=== PATIENT | female | born 1935 | race African-American/Black ===

== ENCOUNTER 2016-05-26 10:57 | Inpatient (IN) | payer OTHER ==
[~2016-05-26] VITALS: Ht 165.1 cm; Wt 91.9 kg
--- NOTE | ~2016-05-26 | CATHLAB ---
[facility] [address] [place] [address] INVASIVE PROCEDURE REPORT Name: WILFRED LÓPEZ Room #: 201-P [facility] IN M.R.#: [id number] Admission: 05/26/16 Attend Phys: Christel Riggs Discharge: 05/29/16 Date of : 39 Date of Service: 05/28/16 1449 Report #: [id number] THIS REPORT FOR: //name// CC: Roshan Li DATE OF SERVICE: 05/28/2016 IVC cavagram and IVC filter placement. INDICATION: Pulmonary emboli. GI bleeding. Unable to be anticoagulated. Needs IVC filter to prevent further emboli. DESCRIPTION OF PROCEDURE: Procedure and risk of IVC filter placement including the risk of filter migration and were discussed with the patient and consent obtained. The patient's left groin was prepped and draped in normal sterile fashion because the right common femoral vein appeared smaller in size. Ultrasound was used to interrogate the left groin, which showed the left common femoral vein to be patent. Under ultrasound guidance, a micropuncture set was used to gain access into the left common femoral vein followed by 5-Mozambican sheath. Through this, a flush catheter was placed in the lower IVC and IVC cavagram was performed with 20 mL of dilute iodinated contrast because of the patient's elevated creatinine. Precise measurements of the IVC were taken and it was less than 28 mm. Renal veins were in expected locations. Following this, a [employer] [place] IVC filter was placed into the inferior vena cava below the level of renal veins in the standard fashion. No immediate complications. FINDINGS: IVC is patent and is of normal size with renal veins in normal location. Subsequent placement of IVC filter was satisfactory. IMPRESSION: Satisfactory placement of inferior vena cava filter as fully reviewed above. <ELECTRONICALLY SIGNED> By: Ashvin Judd MD 05/31/16 1324 1449 0016 Ashvin Judd MD /nt
--- NOTE | ~2016-05-26 | P ---
[facility] [place] [address] PROCEDURE REPORT Name: WILFRED LÓPEZ Room #: 201-P ADM IN M.R.#: [id number] Admission: 05/26/16 Attend Phys: Christel Ledesma Discharge: Date of : 39 Report #: [id number] THIS REPORT FOR: //name// CC: Roshan Li MD Patient of Dr. Davon Li, Dr. Roshan Dutton and Dr. Christel Ledesma. PROCEDURE: Diagnostic EGD. INDICATION FOR PROCEDURE: The patient has been anemic. She has heme positive stools, but she also had a recent episode of epistaxis, which may explain her heme positive stools and anemia. EGD is being performed, nonetheless to be certain that there is no upper GI lesion that might explain heme positive stools and blood loss. Informed consent for this procedure was obtained prior to the administration of any medication. The risks of the procedure which include bleeding, perforation, infection, complications of sedation and the possibility I could miss something have been explained to the patient and she has indicated her consent by signing. Propofol 50 mg and ketamine 50 mg was slowly titrated before and during this procedure for patient comfort by the anesthesia service. The XOS Digitaln upper videoscope was introduced through the upper esophageal sphincter and advanced under direct visualization to the descending duodenum. Findings are noted on withdrawal of the scope. First of all, there is no blood seen in the entire upper GI tract and no source of GI blood loss either. The duodenal mucosa appears normal throughout its entirety. Pylorus, normal mucosa. Antrum, mild erythema is seen. Body, mild erythema is noted in the body of the stomach. Cardia and fundus, normal mucosa. Retroflex view did not reveal any significant abnormalities. The scope was withdrawn to the esophagus. The Z line is appropriately located at the top of the gastric folds and appears normal. The esophageal mucosa appears normal throughout its entirety. The scope was withdrawn. The patient went to the recovery area in stable condition. She tolerated the procedure well. IMPRESSION AND PLAN: Diffuse patchy mild gastric erythema with some mild erosions, this could be a source of heme positive stool, I doubt that it would cause significant gastrointestinal blood loss, however. I will recommend that she have a stool check for Helicobacter pylori antigen. The extent of GI workup in this situation is uncertain. I think we would need to talk with the patient and her family about how aggressive she would like to be in following this. If she prefers to be aggressive, then a colonoscopy and possibly an M2 capsule [address] [address] PROCEDURE REPORT Name: WILFRED LÓPEZ Room #: 201-P ADM IN M.R.#: [id number] Admission: 05/26/16 Attend Phys: Christel Ledesma Discharge: Date of : 39 Report #: [id number] study of the small intestine might be helpful and alternative plan might be to check her stools again later for blood to see if they have reverted to negative. For right now, I would continue the proton pump inhibitors for the mild erosive gastritis. Thank you very much once again for allowing me to participate in her care, Dr. Ledesma. <ELECTRONICALLY SIGNED> By: Susanne Sy DO 05/28/16 1612 1125 1509 Susanne Sy DO /nt
--- NOTE | ~2016-05-26 | EKG ---
[address] [place] [address] ELECTROCARDIOGRAM REPORT Name: WILFRED LÓPEZ [id number] Admission: 05/26/16 Attend Phys: Discharge: Date of : 39 Report #: [id number] THIS REPORT FOR: //name// [facility] ED Test Date: 2016-05-26 Test Time: 10:57:51 Pat Name: WILFRED LÓPEZ Department: Room: Gender: Sample Wrapper: [facility] : 1935 Requested By: Rachna Thompson Order Number: [id number] MD: Miguel Ángel Rooney Measurements Intervals [place] Rate: 75 P: 41 [place]: 197 QRS: -30 QRSD: 157 T: 37 QT: 460 QTc: 514 Interpretive Statements Sinus rhythm Right bundle branch block Compared to ECG 04/22/2016 08:33:06 Atrial premature complex(es) no longer present Electronically Signed On 05-26-2016 12:52:22 ANIMAL BIOLOGIST by Miguel Ángel Rooney [email or web address] <ELECTRONICALLY SIGNED> By: Miguel Ángel Rooney MD, [facility] 05/26/16 1252 1057 56 Miguel Ángel Rooney MD, FACC /EPI
--- NOTE | ~2016-05-26 | HC ---
[facility] [place] [address] CONSULTATION Name: WILFRED LÓPEZ Room #: 201-P ADM IN M.R.#: [id number] Admission: 05/26/16 Attend Phys: Christel Ledesma Discharge: Date of : 39 Report #: [id number] THIS REPORT FOR: //name// CC: Roshan Li DATE OF SERVICE: 05/27/2016 DATE OF SERVICE: 05/27/2016. REASON FOR CONSULTATION: Chest pain. HISTORY OF PRESENT ILLNESS: This is a very pleasant female who had been seen previously for chest discomfort and due to the presence of pulmonary embolus, unable to obtain a perfusion scan. After discharge, she was lost to follow up and did not undergo noninvasive assessment. She now presents once again with GI bleeding and chest discomfort. She was transferred from [facility] with complaints of chest tightness associated dyspnea at rest. Upon questioning, she states she has been having problems for several days, but nothing was done. She is on Coumadin for her pulmonary embolus and was discontinued by the Emergency Room on 05/13/2016 when she had mild controllable nosebleed. She apparently has a history of black stools recently, but no dizziness, lightheadedness. No fever, chills, night sweats. No orthopnea or PND. PAST MEDICAL HISTORY: Significant for: 1. Hypertension. 2. Diabetes. 3. Chronic kidney disease. 4. Anxiety, depression syndrome. 5. Peripheral neuropathy secondary to above. Diabetes. 6. Chronic thrombocytopenia. 7. Gastroparesis. 8. Malaise. 9. Coronary artery disease, status post bypass and percutaneous revascularization. 10. History of congestive heart failure, although not well documented. 11. Gastroesophageal reflux disease. ALLERGIES: ATORVASTATIN AND LISINOPRIL. PAST SURGICAL HISTORY: 1. Significant for aortocoronary bypass grafting. 2. Coronary stents x 2. 3. Back surgery. 4. Hysterectomy. [facility] [address] [place] [address] CONSULTATION Name: WILFRED LÓPEZ Room #: [address] [place] [address] IN ..#: [id number] Admission: 05/26/16 Attend Phys: Christel Ledesma Discharge: Date of : 37 Report #: [id number] 5. Appendectomy. 6. Scheduled for cataract surgery next week. RADIOLOGIC: Chest x-ray failed to demonstrate any acute changes. EKG: Normal sinus rhythm, nonspecific ST-T wave changes. MEDICATIONS: Carvedilol 12.5 b.i.d., potassium chloride, trospium chloride, nitroglycerin sublingual, Xalatan, aspirin, vitamin D3, melatonin, Robitussin cough suppressant, lispro insulin Zoloft, Crestor, Lyrica, Zofran, DuoNeb, Lasix, Lantus. FAMILY HISTORY: Significant for diabetes, hypertension. SOCIAL HISTORY: The patient lives in custodial, does not smoke, consume alcohol. Does not follow particular exercise regimen or dietary restriction, although he is supposed to be on a diabetic restricted diet. REVIEW OF SYSTEMS: Except for symptoms previously mentioned and those commensurate with comorbid states the 10 point review of system is negative. PHYSICAL EXAMINATION: GENERAL: Well-developed female resting comfortably in no acute distress. HEENT: Normocephalic, atraumatic. Pupils are equal, round, reactive to light and accommodation. Extraocular muscles are intact. Sclerae and conjunctivae are anicteric. NECK: JVD is normal. Carotid upstrokes are bilaterally symmetrical. No bruits are heard. No thyromegaly. No lymphadenopathy. LUNGS: Clear to auscultation. No wheezes, rhonchi or crackles. No CVA tenderness. CARDIAC: Demonstrates a regular rhythm. Normal first and second heart sounds. No ventricular or atrial gallops, no rubs noted. No murmurs. No lifts or heaves, PMI normal. ABDOMEN: Soft, nontender, nondistended. Normal bowel sounds. EXTREMITIES: Without cyanosis, clubbing or edema. Distal pulses are intact. DTR symmetrical. NEUROLOGIC: Cranial nerves 2-12 are grossly normal and symmetrical. PSYCHIATRIC: Alert, oriented with normal affect. [address] [address] CONSULTATION Name: WILFRED LÓPEZ Room #: 201-P [facility] IN M.R.#: [id number] Admission: 05/26/16 Attend Phys: Christel Ledesma Discharge: Date of : 37 Report #: [id number] SKIN: Warm and dry. LABORATORY DATA: Demonstrates a potassium of 4.0. BUN and creatinine are 36 and 2.7 with an estimated GFR 21. Nonfasting glucose is 150. BNP is 244, but not strictly interpretable due to decreased GFR. IMPRESSION: 1. Chest pain with shortness of breath, coronary artery disease. It would be reasonable to proceed with ischemic assessment, but the problem is that she may be having more pulmonary emboli due to the fact that anticoagulation for initial pulmonary emboli was discontinued. This is a significant concern. At the present time, we will optimize the medical regimen. 2. Pulmonary embolus needs to be on anticoagulation because of her diagnosis, it is within 3 months of being diagnosed. Shayne has the lowest risk and that should be considered. 3. Anemia, multifactorial. Hemoglobin has dropped from 11.8 to 8.0 with . This needs to be evaluated more fully due to the fact that she does need anticoagulation or an inferior vena cava filter to minimize embolic events. 4. Diabetes mellitus, multifactorial, advanced as per primary care. <ELECTRONICALLY SIGNED> By: Godwin Randhawa MD 05/28/16 1607 1047 1218 Godwin Randhawa MD /nt
[~2016-05-26 10:57] MED LIST: ASPIR-LOW81 MG PO; CARVEDILOL12.5 MG PO; CEFUROXIME250 MG PO; COUMADIN 5 MG TA5 M1 PO; CRESTOR10 MG PO; DUONEB 2.5-0.5 M3 ML INH; GLUCAGON HCL1 MG SUBQ; HUMALOG100 UNIT/1 SUBQ; HUMALOG100 UNIT/2 SQ; ISOSORBIDE MONO60 M1 PO; KLOR-CON 1010 MEQ PO; LANTUS100 UNIT/M SUBQ; LASIX 40 MG TAB40 M2 PO; LYRICA 50 MG50 MG PO; MELATONIN3 MG PO; NITROGLYCERIN0.4 MG SUBLING; ONDANSETRON HCL4 M2 PO; REGLAN 10 MG TA10 MG PO; ROBITUSSIN-COU237 ML PO; SERTRALINE HCL50 MG PO; TROSPIUM CHLORI20 MG PO; TYLENOL325 MG PO; VITAMIN D32000 UNI1 PO; XALATAN2.5 ML OPHTHALMIC
[2016-05-26 10:58] VITALS: BP 159/85
[2016-05-26] MEDS ORDERED: ZOFRAN ODT4 MG DISSOLVE (11:32)
[2016-05-26] MEDS ORDERED: XALATAN2.5 M1 OPHTHALMIC (11:33)
[2016-05-26 11:44] LABS: ABSOLUTE NEUTROPHILS 6.9 thou/uL (1.4-8.2); BASOPHILS 1.5 % (0.0-2.0); EOSINOPHILS 1.4 % (0.0-3.0); HEMATOCRIT 24.4 % (37.0-47.0); LYMPHOCYTES 22.7 % (24.0-44.0); MCH 29.2 pg (26.0-34.0); MCHC 32.6 % (28.0-37.0); MCV 89.5 fL (80.0-100.0); MONOCYTES 8.7 % (1.0-8.0); PLATELET COUNT 239 thou/uL (150-400); POLYS 65.7 % (36.0-66.0); RBC 2.73 mil/uL (4.20-5.00); RDW 15.2 % (10.5-14.5); WBC 10.5 thou/uL (4.0-11.0)
[2016-05-26 11:46] LABS: MANUAL DIFF NO
[2016-05-26 11:59] LABS: ANION GAP 11 mmol/L (7-16); APTT 22.5 Seconds (24.5-32.8); BUN 36 mg/dL (7-18); CHLORIDE 104 mmol/L (98-107); CO2 25 mmol/L (21-32); CREATININE 2.7 mg/dL (0.6-1.3); GLUCOSE 150 mg/dL (70-99); INR 1.2; SODIUM 140 mmol/L (136-145)
[2016-05-26 12:04] LABS: ALKALINE PHOSPHATASE 93 U/L (46-116); MAGNESIUM 2.5 mg/dL (1.8-2.4); SGOT 25 U/L (15-37); SGPT 35 U/L (30-65); TOTAL BILIRUBIN 0.2 mg/dL (<0.1-1.0); TOTAL PROTEIN 8.3 g/dL (6.4-8.2)
[2016-05-26 12:53] LABS: NT-PRO BRAIN NAT PEPTIDE 2445 pg/mL (<300); TROPONIN-I < 0.04 ng/mL (<0.04-0.07)
[2016-05-26 14:30] VITALS: BP 207/96
[2016-05-26 16:52] VITALS: BP 146/78
[2016-05-26 19:35] VITALS: BP 132/74
[2016-05-27] VITALS (10 sets, daily range): BP systolic 144–194; BP diastolic 78–110
[2016-05-27 03:35] LABS: WBC 8.7 thou/uL (4.0-11.0)
[2016-05-27 03:39] LABS: HEMATOCRIT 21.9 % (37.0-47.0); MCH 29.6 pg (26.0-34.0); MCHC 33.1 % (28.0-37.0); MCV 89.4 fL (80.0-100.0); RBC 2.45 mil/uL (4.20-5.00); RDW 15.1 % (10.5-14.5)
[2016-05-27 03:43] LABS: HEMOGLOBIN 7.2 gm/dL (12.0-15.0)
[2016-05-27 03:46] LABS: INR 1.3; PROTIME 13.9 Seconds (9.3-11.4)
[2016-05-27 04:08] LABS: ANION GAP 10 mmol/L (7-16); BUN 29 mg/dL (7-18); CHLORIDE 111 mmol/L (98-107); CO2 24 mmol/L (21-32); CREATININE 2.4 mg/dL (0.6-1.3); GLUCOSE 129 mg/dL (70-99); POTASSIUM 4.1 mmol/L (3.5-5.1); SODIUM 145 mmol/L (136-145)
[2016-05-27 04:18] LABS: ALBUMIN 2.5 g/dL (3.4-5.0); PHOSPHORUS 2.9 mg/dL (2.5-4.9); TROPONIN-I < 0.04 ng/mL (<0.04-0.07)
[2016-05-27 08:08] LABS: URINE BILIRUBIN NEGATIVE (Negative); URINE BLOOD 2+ (Negative); URINE COLOR YELLOW; URINE GLUCOSE-RANDOM* NEGATIVE (Negative); URINE KETONES NEGATIVE (Negative); URINE NITRITE NEGATIVE (Negative); URINE PROTEIN (DIPSTICK) 1+ (Negative); URINE UROBILINOGEN 0.2 E.U./dl (0.2-1.0)
[2016-05-27 08:22] LABS: SQUAMOUS 0-3 Few /LPF (0-3)
[2016-05-27 08:23] LABS: BACTERIA 1-9 Few /HPF (None Seen); CASTS None Seen /LPF (None Seen); CRYSTALS None Seen /LPF (None Seen); URINE RBC 0-2 Rare /HPF (0-2); URINE WBC None Seen /HPF (0-5)
[2016-05-27 09:40] LABS: HEMATOCRIT 23.9 % (37.0-47.0); HEMOGLOBIN 7.8 gm/dL (12.0-15.0)
[2016-05-28 05:28] LABS: HEMATOCRIT 29.5 % (37.0-47.0); HEMOGLOBIN 9.5 gm/dL (12.0-15.0); MCH 27.9 pg (26.0-34.0); MCHC 32.2 % (28.0-37.0); MCV 86.6 fL (80.0-100.0); RBC 3.41 mil/uL (4.20-5.00); RDW 17.8 % (10.5-14.5); WBC 10.7 thou/uL (4.0-11.0)
[2016-05-28 05:43] VITALS: BP 163/85
[2016-05-28 05:44] LABS: ALBUMIN 2.5 g/dL (3.4-5.0); CALCIUM 9.1 mg/dL (8.5-10.1); CREATININE 2.5 mg/dL (0.6-1.3); PHOSPHORUS 3.1 mg/dL (2.5-4.9); POTASSIUM 3.9 mmol/L (3.5-5.1); TROPONIN-I 0.06 ng/mL (<0.04-0.07)
[2016-05-28 07:10] VITALS: BP 185/95
[2016-05-28 10:36] VITALS: BP 185/95
[2016-05-28 11:00] LABS: INR 1.5; PROTIME 15.4 Seconds (9.3-11.4)
[2016-05-28 16:45] VITALS: BP 152/88
[2016-05-28 19:14] VITALS: BP 127/77
[2016-05-29 03:09] VITALS: BP 127/73
[2016-05-29 07:20] VITALS: BP 155/89
[2016-05-29] MEDS ORDERED: PROTONIX40 M1 PO (10:27)
[2016-05-29 11:15] VITALS: BP 134/73
== END 2016-05-29 13:45 | DRG 356 ==
LOC: ER 10:57 → 2N 13:06 → EROBS 13:06 → 2N 14:10
PROVIDERS: Hospitalist; Nurse Practitioner Acute Care; Nurse Practitioner Family
PROC: 06H03DZ Insertion of Intraluminal Device into Inferior Vena Cava, Percutaneous Approach (ICD-10-PCS; 2016-05-26)
PROC: 30233N1 Transfusion of Nonautologous Red Blood Cells into Peripheral Vein, Percutaneous Approach (ICD-10-PCS; 2016-05-27)
PROC: 05HB33Z Insertion of Infusion Device into Right Basilic Vein, Percutaneous Approach (ICD-10-PCS; 2016-05-27)
PROC: 0DJ08ZZ Inspection of Upper Intestinal Tract, Via Natural or Artificial Opening Endoscopic (ICD-10-PCS; principal; 2016-05-28)
DX: K92.2 Gastrointestinal hemorrhage, unspecified (principal); I26.99 Other pulmonary embolism without acute cor pulmonale; N17.0 Acute kidney failure with tubular necrosis; E43 Unspecified severe protein-calorie malnutrition; D62 Acute posthemorrhagic anemia; I13.0 Hypertensive heart and chronic kidney disease with heart failure and stage 1 through stage 4 chronic kidney disease, or unspecified chronic kidney disease; I50.9 Heart failure, unspecified; E11.22 Type 2 diabetes mellitus with diabetic chronic kidney disease; J44.9 Chronic obstructive pulmonary disease, unspecified; K21.9 Gastro-esophageal reflux disease without esophagitis; N18.9 Chronic kidney disease, unspecified; F32.9 Major depressive disorder, single episode, unspecified; E11.40 Type 2 diabetes mellitus with diabetic neuropathy, unspecified; J45.909 Unspecified asthma, uncomplicated; E11.43 Type 2 diabetes mellitus with diabetic autonomic (poly)neuropathy; K31.84 Gastroparesis; E78.5 Hyperlipidemia, unspecified; F41.9 Anxiety disorder, unspecified; D69.6 Thrombocytopenia, unspecified; I25.10 Atherosclerotic heart disease of native coronary artery without angina pectoris; Z95.1 Presence of aortocoronary bypass graft; I25.2 Old myocardial infarction; Z90.710 Acquired absence of both cervix and uterus; Z90.49 Acquired absence of other specified parts of digestive tract; Z79.82 Long term (current) use of aspirin; Z86.711 Personal history of pulmonary embolism; Z79.899 Other long term (current) drug therapy; Z95.5 Presence of coronary angioplasty implant and graft; Z83.3 Family history of diabetes mellitus; Z82.49 Family history of ischemic heart disease and other diseases of the circulatory system; Z79.01 Long term (current) use of anticoagulants
CPT/HCPCS: 10081; 27000; 62110; 62900; 70005

== ENCOUNTER 2016-06-11 16:56 | Inpatient (IN) | payer OTHER ==
[~2016-06-11] VITALS: Ht 165.1 cm; Wt 93.8 kg
--- NOTE | ~2016-06-11 | 2DMMODE ---
[facility] [place] [address] 2 D/M-MODE ECHOCARDIOGRAM Name: WILFRED LÓPEZ Room #: 210-P [facility] IN .R.#: [id number] Admission: 06/11/16 Attend Phys: Andres Lockett Discharge: Date of : 39 Date of Service: 06/12/16 1015 Report #: [id number] THIS REPORT FOR: //name// Transthoracic Echocardiography Ordering physician: Jennifer العلي Referring physician: Davon Li Backer Up: Kailee Lopes RDCS Indications/History: Chest Pain. Dyspnea. Coronary artery disease. Congestive heart failure. Risk factors: Hypertension. Diabetes mellitus. Labs, prior tests, procedures, and surgery: Coronary artery bypass grafting. BP: 160 / HR: 69bpm Height: 65in Weight: 216.5lb 88 Study data: Comparison was made to the study of April 22, 2016. M-mode, complete 2D, complete spectral Doppler, and color Doppler. Location: Bedside. Terrazzo Supervisor. Image quality was adequate. 2D measurements Normal Normal LVID ED 38.3mm 36-57 IVS ED 14.2mm 6-11 LVID ES 25.6mm 23-40 LVPW ED 13.8mm 6-11 LA volume 20ml/m2 16-28 AoRoot diam 30.9mm 21-37 index ED LVOT diameter 21mm 18-23 Findings: Left ventricle: The cavity size was normal. Wall thickness was increased increased in a pattern of mild to moderate LVH. Systolic function was normal. Wall motion was normal. Right ventricle: The cavity size was normal. Systolic function was normal. Right atrium: The atrium was normal in size. [facility] [address] [place] [address] 2 D/M-MODE ECHOCARDIOGRAM Name: WILFRED LÓPEZ Room #: 210-P ADM IN Capri.#: [id number] Admission: 06/11/16 Attend Phys: Andres Lockett Discharge: Date of : 39 Date of Service: 06/12/16 1015 Report #: [id number] Left atrium: The atrium was normal in size. Volume index: 20ml/m2 (S). Aortic valve: Structurally normal valve. Moderately sclerotic leaflets. Doppler: There was no stenosis. Moderate regurgitation. Peak velocity: 143.9cm/s (S). Mitral valve: Structurally normal valve. Doppler: There was no evidence for stenosis. Mild to moderate regurgitation. Tricuspid valve: Structurally normal valve. Doppler: There was no evidence for stenosis. Moderate regurgitation. Regurgitant peak velocity: 383cm/s. Peak RV-RA gradient: 59mm Hg (S). Pulmonic valve: Structurally normal valve. Doppler: There was no evidence for stenosis. Mild regurgitation. Pericardium: There was no pericardial effusion. Aorta: Aortic root: The aortic root was normal in size. Pulmonary artery: Systolic pressure was estimated to be 64mm Hg. Diastolic function: Doppler parameters are consistent with abnormal left ventricular relaxation (grade 1 diastolic dysfunction). Systemic veins: Inferior vena cava: The vessel was normal in size; the respirophasic diameter changes were in the normal range (= 50%). Conclusions 1. Left ventricle: The cavity size was normal. Wall thickness was increased increased in a pattern of mild to moderate LVH. Systolic function was normal. Ejection fraction: 62.52% (Teichholz). 2. Right ventricle: The cavity size was normal. 3. Aortic valve: Structurally normal valve. Moderately sclerotic leaflets. There was no stenosis. 4. Mitral valve: Structurally normal valve. 5. Tricuspid valve: Moderate regurgitation. Peak RV-RA gradient: 59mm Hg (S). 6. Pericardium, extracardiac: There was no pericardial effusion. [facility] [address] [place] [address] 2 D/M-MODE ECHOCARDIOGRAM Name: RENEWILFRED Room #: 210[facility] IN M.R.#: [id number] Admission: 06/11/16 Attend Phys: Andres Lockett Discharge: Date of : 39 Date of Service: 06/12/16 1015 Report #: [id number] 7. Pulmonary arteries: Systolic pressure was estimated to be 64mm Hg. <ELECTRONICALLY SIGNED> By: Joseph Chin MD 06/12/161701 1015 01 Joseph Chin MD /liliana
--- NOTE | ~2016-06-11 | EKG ---
[address] [place] [employer] [address] ELECTROCARDIOGRAM REPORT Name: RENEWILFRED Room #: 210-P ADM IN M.R.#: [id number] Admission: 06/11/16 Attend Phys: Gabriel Ziegler MD Discharge: Date of : 39 Report #: [id number] THIS REPORT FOR: //name// [facility] ED Test Date: 2016-06-11 Test Time: 17:04:18 Pat Name: WILFRED LÓPEZ Department: Room: 210 Gender: F Checking Department Supervisor: NISHA : 1935 Requested By: Lilia Pickett Order Number: [id number] MD: Joseph Chin Measurements Intervals [place] Rate: 70 P: 38 [place]: 179 QRS: -31 QRSD: 160 T: 7 QT: 473 QTc: 511 Interpretive Statements Sinus rhythm Right bundle branch block Probable left ventricular hypertrophy Electronically Signed On 06-12-2016 8:04:17 PMP CERTIFIED PROJECT MANAGER by Joseph Chin [email or web address] <ELECTRONICALLY SIGNED> By: Joseph Chin MD 06/12/16 0804 170 03 Joseph Chin MD /MARYSE
--- NOTE | ~2016-06-11 | HC ---
[facility] [place] [address] CONSULTATION Name: WILFRED LÓPEZ Room #: Formerly named [facility] IN M.R.#: [id number] Admission: 06/11/16 Attend Phys: Gabriel Ziegler MD Discharge: 06/14/16 Date of : 39 Report #: [id number] THIS REPORT FOR: //name// CC: [facility] DATE OF SERVICE: 06/11/2016 REASON FOR CONSULTATION: Chest pain. HISTORY OF PRESENT ILLNESS: The patient is a 80-year-old with known CAD, peripheral vascular disease with two recent hospitalizations for chest pain, one was in April where she had intermediate VQ scan and was placed on warfarin therapy. She came back on 05/26 with recurrent chest pain and possible epistaxis versus GI bleed. At that time it sounds like an IVC filter was placed. She comes back again with complaints of chest pain. She reports that last few seconds to a few minutes, feels like a tightness, some shortness of breath with exertion. She is currently chest pain free, other complaints include diarrhea. PAST MEDICAL HISTORY: 1. Coronary artery disease, status post stents x 2. 2. CABG. 3. Aortofemoral bypass. 4. CHF. 5. Hypertension. 6. Diabetes. 7. Possible GI bleed versus epistaxis. 8. PE with an intermediate VQ scan in April, status post IVC filter for possible GI bleeding. 9. Chronic renal insufficiency. 10. Anxiety, depression. 11. Her echo on 04/22/2016 showed EF of 55% with no significant valvular abnormalities. PA pressures of 58 mmHg. SOCIAL HISTORY: She lives at [facility], does not smoke. FAMILY HISTORY: Significant for diabetes. ALLERGIES: INCLUDE LIPITOR, LISINOPRIL. HOME MEDICATIONS: Include Imdur 60, Coreg 12.5 b.i.d., potassium, nitro p.r.n., eye drops, nebulizers, aspirin, insulin, sertraline, Crestor 10, pregabalin, Zofran, Glucagon, iron and loperamide. REVIEW OF SYSTEMS: GENERAL: No fevers, chills. [address] [address] CONSULTATION Name: WILFRED LÓPEZ Room #: 210-P [facility] IN .R.#: [id number] Admission: 06/11/16 Attend Phys: Gabriel Ziegler MD Discharge: 06/14/16 Date of : 39 Report #: [id number] HEENT: No blurred vision. CARDIOVASCULAR: As above. PULMONARY: No productive cough. GASTROINTESTINAL: No nausea, but has been having some diarrhea. GENITOURINARY: No dysuria. MUSCULOSKELETAL: No myalgias, arthralgias. ENDOCRINE: No heat or cold intolerance. NEUROLOGIC: No focal weakness. PHYSICAL EXAMINATION: VITAL SIGNS: Temperature is 36.8, pulse 69, respiration 18, blood pressure 160/80, sats 100%. GENERAL: She is in no acute distress, lying flat in bed. HEENT: Oropharynx is clear. NECK: Supple, no thyromegaly or carotid bruits. HEART: Regular rate and rhythm with occasional ectopic beats. No murmurs. She does not have elevated jugular venous pressure. LUNGS: Clear to auscultation bilaterally. ABDOMEN: Soft, nontender, nondistended with no hepatosplenomegaly. EXTREMITIES: There is no clubbing, cyanosis, edema. Cranial nerves II-XII are intact. LABORATORY DATA: White count is 7.7, hemoglobin 9.3, platelets are 180, ____is 3.8, creatinine is 3.0. Troponin was initially 0.1, is now 0.08. In summary, her chest x-ray reviewed shows some mild pulmonary edema, shows sternal wires, and enlarged cardiac silhouette. Her EKG showed sinus rhythm with a right bundle branch block, which is old with no ischemic changes. Telemetry shows sinus rhythm with occasional premature ventricular contractions. ASSESSMENT AND PLAN: In summary, the patient is a 80-year-old female with known CAD status post IVC filter for recent pulmonary embolus, presenting with recurrent chest pain. Her troponin is mildly elevated with an EKG that shows no ischemic changes. At this time, we will continue her on her current medical regimen, we will order a nuclear stress test to be performed on Tuesday. Based on these results, we will decide to proceed with cardiac cath. However, given her renal function, if there is not a significant territory of ischemia, I would probably recommend medical management. <ELECTRONICALLY SIGNED> By: Joseph Chin MD 06/18/16 1225 0901 0928 Joseph Chin MD /nt
[~2016-06-11 16:56] MED LIST changes: +PROTONIX40 M1 PO; +XALATAN2.5 M1 OPHTHALMIC; +ZOFRAN ODT4 MG DISSOLVE
[2016-06-11 16:59] VITALS: BP 143/70
[2016-06-11] MEDS ORDERED: GLUCAGON EMERGEN1 MG IJ (17:13)
[2016-06-11] MEDS ORDERED: OCEAN45 ML NASAL (17:14)
[2016-06-11] MEDS ORDERED: LOPERAMIDE1 MG/7.5 M PO (17:18)
[2016-06-11] MEDS ORDERED: IRON325 PO (17:18)
[2016-06-11 17:39] LABS: HEMATOCRIT 31.8 % (37.0-47.0); HEMOGLOBIN 10.2 gm/dL (12.0-15.0); MCH 28.1 pg (26.0-34.0); MCHC 32.3 % (28.0-37.0); PLATELET COUNT 184 thou/uL (150-400); RBC 3.65 mil/uL (4.20-5.00); RDW 18.2 % (10.5-14.5)
[2016-06-11 17:44] LABS: MANUAL DIFF YES
[2016-06-11 17:49] LABS: CALCIUM 9.5 mg/dL (8.5-10.1); POTASSIUM 3.6 mmol/L (3.5-5.1)
[2016-06-11 18:04] LABS: TROPONIN-I 0.11 ng/mL (<0.04-0.07)
[2016-06-11 18:05] LABS: ABSOLUTE NEUTROPHILS 4.6 thou/uL (1.4-8.2); ANISOCYTOSIS 1+; TOTAL CELL COUNT 100
[2016-06-11 18:20] VITALS: BP 141/67
[2016-06-11 19:47] VITALS: BP 145/61
[2016-06-11 21:13] VITALS: BP 169/84
[2016-06-11 23:29] VITALS: BP 140/74
[2016-06-12 03:50] VITALS: BP 170/88
[2016-06-12 05:54] LABS: HEMATOCRIT 29.6 % (37.0-47.0); HEMOGLOBIN 9.3 gm/dL (12.0-15.0); MCH 27.8 pg (26.0-34.0); MCHC 31.5 % (28.0-37.0); MCV 88.1 fL (80.0-100.0); RBC 3.35 mil/uL (4.20-5.00); WBC 7.7 thou/uL (4.0-11.0)
[2016-06-12 07:10] VITALS: BP 160/88; BP 170/88
[2016-06-12 08:17] LABS: ALBUMIN 2.5 g/dL (3.4-5.0); ALKALINE PHOSPHATASE 63 U/L (46-116); ANION GAP 9 mmol/L (7-16); BUN 33 mg/dL (7-18); CALCIUM 9.1 mg/dL (8.5-10.1); CHLORIDE 108 mmol/L (98-107); CO2 26 mmol/L (21-32); GLUCOSE 138 mg/dL (70-99); POTASSIUM 3.8 mmol/L (3.5-5.1); SGOT 31 U/L (15-37); SGPT 24 U/L (30-65); SODIUM 143 mmol/L (136-145); TOTAL BILIRUBIN 0.2 mg/dL (<0.1-1.0); TOTAL PROTEIN 7.4 g/dL (6.4-8.2)
[2016-06-12 11:30] VITALS: BP 183/86
[2016-06-12 11:37] LABS: CHOLESTEROL 110 mg/dL (<200); HDL CHOLESTEROL 46 mg/dL (>40); LDL CHOLESTEROL 45 mg/dL (<100); TC:HDL 2.4 Ratio (Not establshd); TRIGLYCERIDE 95 mg/dL (<150); VLDL 19 mg/dL (<40)
[2016-06-12 15:15] VITALS: BP 141/78
[2016-06-12 20:05] VITALS: BP 157/77
[2016-06-13 03:47] VITALS: BP 166/85
[2016-06-13 04:01] LABS: CREATININE 2.7 mg/dL (0.6-1.3); MAGNESIUM 2.3 mg/dL (1.8-2.4); POTASSIUM 3.3 mmol/L (3.5-5.1)
[2016-06-13 07:30] VITALS: BP 189/73
[2016-06-13 11:15] VITALS: BP 166/73
[2016-06-13 15:30] VITALS: BP 160/74
[2016-06-13 20:01] VITALS: BP 166/79
[2016-06-13 23:15] VITALS: BP 135/72
[2016-06-14 04:10] LABS: CALCIUM 8.9 mg/dL (8.5-10.1); CREATININE 2.2 mg/dL (0.6-1.3); POTASSIUM 3.5 mmol/L (3.5-5.1)
[2016-06-14 04:28] VITALS: BP 163/87
[2016-06-14 07:40] VITALS: BP 187/85
[2016-06-14 10:00] VITALS: BP 147/78
[2016-06-14 11:15] VITALS: BP 143/75
[2016-06-14 12:09] LABS: ABG SAMPLE TYPE ARTERIAL; BE(vivo) 4.6 mmol/L (-2 to +3); HCO3 28.9 mmol/L (22.0-26.0); LACTATE 1.07 mmol/L (0.5-2.0); O2(CT) 15.4 mL/dL (15.0-23.0); O2Hb 93.2 % (92.0-98.0); PCO2 41.8 mmHg (35.0-45.0); PO2 67.1 mmHg (80.0-100.0); pH 7.458 (7.360-7.450); sO2 94.2 % (92.0-98.0); tCO2 30.2 mmol/L (24.0-30.0)
[2016-06-14 12:11] LABS: ABG COMMENT NO COMPLICATIONS; STICK SITE R.RADIAL
[2016-06-14] MEDS ORDERED: LASIX 40 MG TAB40 M2 PO (13:27)
[2016-06-14] MEDS ORDERED: AMLODIPINE BESY10 MG PO (13:27)
[2016-06-14] MEDS ORDERED: OXYCODONE HCL 55 MG PO (13:27)
[2016-06-14] MEDS ORDERED: LANTUS100 UNIT/M SUBQ (13:27)
[2016-06-14 16:35] VITALS: BP 152/69
== END 2016-06-14 20:10 | DRG 682 ==
LOC: ER 16:56 → 2N 19:07 → EROBS 19:07 → 2N 20:31
PROVIDERS: Emergency Medicine; Internal Medicine; Nurse Practitioner; Nurse Practitioner Adult Health
DX: N17.9 Acute kidney failure, unspecified (principal); I50.33 Acute on chronic diastolic (congestive) heart failure; I13.0 Hypertensive heart and chronic kidney disease with heart failure and stage 1 through stage 4 chronic kidney disease, or unspecified chronic kidney disease; I25.110 Atherosclerotic heart disease of native coronary artery with unstable angina pectoris; E78.5 Hyperlipidemia, unspecified; F32.9 Major depressive disorder, single episode, unspecified; N18.4 Chronic kidney disease, stage 4 (severe); K21.9 Gastro-esophageal reflux disease without esophagitis; E11.22 Type 2 diabetes mellitus with diabetic chronic kidney disease; E66.01 Morbid (severe) obesity due to excess calories; F41.9 Anxiety disorder, unspecified; D64.9 Anemia, unspecified; E11.40 Type 2 diabetes mellitus with diabetic neuropathy, unspecified; Z90.710 Acquired absence of both cervix and uterus; Z90.49 Acquired absence of other specified parts of digestive tract; Z88.8 Allergy status to other drugs, medicaments and biological substances; I25.2 Old myocardial infarction; Z95.1 Presence of aortocoronary bypass graft; Z95.5 Presence of coronary angioplasty implant and graft; Z86.711 Personal history of pulmonary embolism; Z98.42 Cataract extraction status, left eye; Z79.899 Other long term (current) drug therapy; Z79.82 Long term (current) use of aspirin; Z83.3 Family history of diabetes mellitus; Z82.49 Family history of ischemic heart disease and other diseases of the circulatory system; Z68.34 Body mass index [BMI] 34.0-34.9, adult; Z79.4 Long term (current) use of insulin
CPT/HCPCS: 10081

== ENCOUNTER 2017-08-04 11:20 | Emergency (ER) | payer OTHER ==
[~2017-08-04] VITALS: Ht 162.6 cm; Wt 95.3 kg
--- NOTE | ~2017-08-04 | EKG ---
[address] [address] [facility] [place] [address] ELECTROCARDIOGRAM REPORT Name: WILFRED LÓPEZ [facility] [id number] Admission: 08/04/17 Attend Phys: Discharge: 08/04/17 Date of : 39 Report #: [id number] THIS REPORT FOR: //name// [facility] ED Test Date: 2017-08-04 Test Time: 11:32:32 Pat Name: WILFRED LÓPEZ Department: Room: Gender: F Floor Nurse: [facility] : 1935 Requested By: Alejo Carrillo Order Number: [id number] MD: Miguel Ángel Rooney Measurements Intervals [place] Rate: 66 P: 45 [place]: 195 QRS: -51 QRSD: 153 T: 21 QT: 470 QTc: 493 Interpretive Statements Sinus rhythm RBBB and LAFB Compared to ECG 04/02/2017 11:56:05 Ventricular premature complex(es) no longer present Electronically Signed On 08-07-2017 13:20:44 CDT by Miguel Ángel Rooney [email or web address] <ELECTRONICALLY SIGNED> By: Miguel Ángel Rooney MD, [facility] 08/07/17 1320 1132 31 Miguel Ángel Rooney MD, [facility] /EPI
[~2017-08-04 11:20] MED LIST changes: +AMLODIPINE BESY10 MG PO; +DITROPAN XL10 M1 PO; +GLUCAGON EMERGEN1 MG IJ; +IRON325 PO; +LEVAQUIN 500 M500 M2 PO; +LOPERAMIDE1 MG/7.5 M PO; +LYRICA 75 MG CA75 MG PO; +LYRICA25 MG PO; +NOVOLOG100 UNIT/1 SUBQ; +OCEAN45 ML NASAL; +OXYCODONE HCL 55 MG PO; +PEPCID20 MG PO; +POTASSIUM CHLO20 MEQ PO; +PROBIOTIC1 EAC1 PO; +QUESTRAN PACKET4 GM PO; +SYMBICORT160 MCG/4. INH; +TORSEMIDE20 MG PO
[2017-08-04 11:58] LABS: ABSOLUTE NEUTROPHILS 5.1 thou/uL (1.4-8.2); BASOPHILS 1.1 % (0.0-2.0); EOSINOPHILS 1.7 % (0.0-3.0); HEMATOCRIT 38.8 % (37.0-47.0); HEMOGLOBIN 12.4 gm/dL (12.0-15.0); LYMPHOCYTES 23.7 % (24.0-44.0); MCH 29.4 pg (26.0-34.0); MCHC 31.9 g/dL (28.0-37.0); MCV 92.2 fL (80.0-100.0); PLATELET COUNT 147 thou/uL (150-400); POLYS 62.5 % (36.0-66.0); RBC 4.22 mil/uL (4.20-5.00); RDW 16.2 % (10.5-14.5); WBC 8.2 thou/uL (4.0-11.0)
[2017-08-04 12:07] LABS: ANION GAP 6 mmol/L (7-16); BUN 45 mg/dL (7-18); CHLORIDE 105 mmol/L (98-107); CO2 30 mmol/L (21-32); CREATININE 2.5 mg/dL (0.6-1.0); GLUCOSE 175 mg/dL (74-106); POTASSIUM 5.5 mmol/L (3.5-5.1); SODIUM 141 mmol/L (136-145)
[2017-08-04 12:16] LABS: TROPONIN-I < 0.04 ng/mL (<0.06)
[2017-08-04 14:15] VITALS: BP 151/82
[2018-01-19] MEDS ORDERED: AMLODIPINE BESYL5 MG PO (11:34)
[2018-01-19] MEDS ORDERED: POTASSIUM20 PO (11:35)
[2018-01-19] MEDS ORDERED: DEMADEX 2020 MG/1 TA PO (11:35)
== END 2017-08-04 14:15 ==
LOC: ER 11:20
PROVIDERS: Nurse Practitioner
DX: R06.00 Dyspnea, unspecified (principal); R53.1 Weakness; E87.5 Hyperkalemia; I50.9 Heart failure, unspecified; E78.5 Hyperlipidemia, unspecified; E11.9 Type 2 diabetes mellitus without complications; K21.9 Gastro-esophageal reflux disease without esophagitis; I25.2 Old myocardial infarction; Z90.49 Acquired absence of other specified parts of digestive tract; Z90.710 Acquired absence of both cervix and uterus; Z88.6 Allergy status to analgesic agent

== ENCOUNTER 2018-05-30 07:37 | Inpatient (IN) | payer OTHER ==
[~2018-05-30] VITALS: Ht 162.6 cm; Wt 96.8 kg
[~2018-05-30 07:37] MED LIST changes: +AMLODIPINE BESYL5 MG PO; -ASPIR-LOW81 MG PO; +ASPIRIN EC81 M1 PO; -CRESTOR10 MG PO; +CRESTOR40 MG PO; +DEMADEX 2020 MG/1 TA PO; -DITROPAN XL10 M1 PO; +OXYBUTYNIN 5 MG5 M2 PO; +POTASSIUM20 PO
[2018-05-30 07:38] VITALS: BP 157/70
[2018-05-30 08:03] LABS: BE(vivo) 0.9 mmol/L (-2 to +3); HCO3 29.2 mmol/L (22.0-26.0); PO2 70.3 mmHg (80.0-100.0)
--- NOTE | 2018-05-30 08:03 | EKG ---
[address] [place] [address] ELECTROCARDIOGRAM REPORT Name: WILFRED LÓPEZ Room #: [facility]..#: [id number] Admission: Attend Phys: Discharge: Date of : 39 Report #: [id number] THIS REPORT FOR: //name// [facility] ED Test Date: 2018-05-30 Test Time: 07:52:30 Pat Name: WILFRED LÓPEZ Department: Room: Gender: F Senior Control Systems Engineer: JESE : 1935 Requested By: Tacos Zapien Order Number: [id number] MD: Miguel Ángel Rooney Measurements Intervals [place] Rate: 63 P: 12 [place]: 175 QRS: -44 QRSD: 150 T: 26 QT: 458 QTc: 469 Interpretive Statements Sinus rhythm Right bundle branch block Compared to ECG 01/12/2018 18:14:51 No significant change was found Electronically Signed On 05-30-2018 8:03:00 FIRER BISQUE KILN by Miguel Ángel Rooney [email or web address] <ELECTRONICALLY SIGNED> By: Miguel Ángel Rooney MD, [facility] 05/30/18 08 0752 0752 Miguel Ángel Rooney MD, [facility]ACC /EPI
[2018-05-30 08:04] LABS: PCO2 67.2 mmHg (35.0-45.0); pH 7.256 (7.360-7.450)
[2018-05-30] MEDS ORDERED: DEMADEX20 MG PO (08:19)
[2018-05-30] MEDS ORDERED: NOVOLIN 70100 UNIT/1 SUBQ ×2 (08:20→08:42)
--- NOTE | 2018-05-30 08:30 | NUR ---
REQUESTED LAB TO BEDSIDE TO RECOLLECT LAVENDER AND GREEN SPECIMENS AFTER THIS RN AND ANKUR CARRILLO ATTEMPTED X 3 THIS RN SENT "RAINBOW" SPECIMENS WITH IV PLACEMENT AT 0820 TAGGED "SLOW DRAW"
[2018-05-30] MEDS ORDERED: SYMBICORT160 MCG/4. INH (08:43)
[2018-05-30] MEDS ORDERED: ACETAMINOPHEN-1 EAC1 PO (08:45)
[2018-05-30 08:53] LABS: ABSOLUTE NEUTROPHILS 5.4 thou/uL (1.4-8.2); BASOPHILS 0.8 % (0.0-2.0); EOSINOPHILS 1.5 % (0.0-3.0); HEMATOCRIT 32.9 % (37.0-47.0); HEMOGLOBIN 10.5 gm/dL (12.0-15.0); LYMPHOCYTES 14.6 % (24.0-44.0); MCH 29.8 pg (26.0-34.0); MONOCYTES 9.2 % (1.0-8.0); PLATELET COUNT 120 thou/uL (150-400); POLYS 73.9 % (36.0-66.0); RBC 3.54 mil/uL (4.20-5.00); RDW 16.7 % (10.5-14.5); WBC 7.3 thou/uL (4.0-11.0)
[2018-05-30 09:03] LABS: ANION GAP 5 mmol/L (7-16); BUN 35 mg/dL (7-18); CALCIUM 9.4 mg/dL (8.5-10.1); CHLORIDE 106 mmol/L (98-107); CO2 31 mmol/L (21-32); CREATININE 3.9 mg/dL (0.6-1.0); GLUCOSE 99 mg/dL (74-106); SODIUM 142 mmol/L (136-145)
[2018-05-30 09:12] LABS: TROPONIN-I <0.06 ng/mL (<0.06)
[2018-05-30 09:39] LABS: BE(vivo) 0.2 mmol/L (-2 to +3); HCO3 28.4 mmol/L (22.0-26.0); PCO2 65.9 mmHg (35.0-45.0); PO2 85.7 mmHg (80.0-100.0); pH 7.253 (7.360-7.450); sO2 94.7 % (92.0-98.0)
[2018-05-30 09:53] VITALS: BP 163/66
[2018-05-30 10:26] VITALS: BP 170/76
[2018-05-30 12:00] VITALS: BP 167/64
[2018-05-30 15:50] VITALS: BP 156/73
--- NOTE | 2018-05-30 17:34 | NUR ---
ASSUMED CARE AT 1130, ARRIVED FROM ED VIA STRECHER, ALERT AND ORIENTED X4. C/O CHEST PRESSURE. ON PIBAB AT THIS TIME. AFEBRILE, BP AT 165/67 AND SR ON TTE MONITOR. ADMISSION COMPLETED AND WILL CONTINUE TO MONITOR PATIENT CLOSELY.
[2018-05-30 19:29] VITALS: BP 175/81
--- NOTE | 2018-05-30 21:56 | H ---
[facility] [place] [address] HISTORY AND PHYSICAL Name: WILFRED LÓPEZ Room #: 217-P ADM IN M.R.#: [id number] Admission: 05/30/18 Attend Phys: Ayo Hook MD Discharge: Date of : 37 Report #: [id number] THIS REPORT FOR: //name// CC: MOISES Hook DATE OF SERVICE: 05/30/2018 ADDENDUM I left off from medication list from the halfway. It is as follows: Amlodipine 5 mg by mouth daily, potassium chloride 20 mEq by mouth daily, isosorbide mononitrate ER 60 mg by mouth daily, carvedilol 12.5 mg by mouth b.i.d., nitroglycerin 0.4 mg sublingual p.r.n. chest pain, aspirin 81 mg by mouth daily, vitamin D3 of 2000 units by mouth daily, sertraline 50 mg by mouth nightly, rosuvastatin 10 mg by mouth nightly, DuoNeb per nebulizer q.4 hours p.r.n., famotidine 20 mg by mouth nightly, Lyrica 25 mg by mouth daily, Novolin 70/30, 30 units subcutaneously every morning and 10 units subcutaneously every evening. Acetaminophen 325 mg 2 tablets by mouth every 8 hours p.r.n. pain. Tylenol No. 3 p.r.n. pain with acetaminophen, not to exceed 3 grams in 24 hours. Budesonide/formoterol 160/4.5 one puff daily and rinse afterwards. Glucagon p.r.n. hypoglycemia. Oxybutynin 10 mg by mouth daily. Latanoprost for glaucoma 0.005% drops 1 drop in each eye at bedtime, Voltaren gel 1% b.i.d. overall joints, especially the left shoulder and left deltoid b.i.d. Torsemide 20 mg by mouth every morning and afternoon. Oxygen at 2 liters per nasal cannula continuously, CPAP nightly for obstructive sleep apnea. <ELECTRONICALLY SIGNED> By: Ayo Hook MD 05/30/18 2156 1118 1200 Ayo Hook MD /nt
--- NOTE | 2018-05-30 21:56 | H ---
[facility] [place] [address] HISTORY AND PHYSICAL Name: WILFRED LÓPEZ Room #: 217-P ADM IN M.R.#: [id number] Admission: 05/30/18 Attend Phys: Ayo Hook MD Discharge: Date of : 37 Report #: [id number] THIS REPORT FOR: //name// CC: Miguel Ángel Rooney MD [facility] FAM unknown Tom Gutierrez MD DATE OF SERVICE: 05/30/2018 CHIEF COMPLAINT: Shortness of breath. HISTORY OF PRESENT ILLNESS: The patient is an 82-year-old resident of [facility] who in the last couple of days, developed increasing problems with shortness of breath at rest. She was brought to the Emergency Department by ambulance this morning and is admitted for further evaluation and treatment. PAST MEDICAL HISTORY: Very extensive and includes severe chronic kidney disease with a creatinine of around 3 at baseline, COPD, obstructive sleep apnea, congestive heart failure, hypertension, type 2 diabetes mellitus, GI bleeds, pneumonias, hyperlipidemia. She also has a history of coronary artery bypass surgery in 2003 x 3 vessels, she has also had cardiac stents placed twice. She does have a history of depression and peripheral neuropathy and chest pain. She has had a pulmonary embolism in the past without specifics of date mentioned. There is a history of thrombocytopenia, prior appendectomy and hysterectomy. She has had myocardial infarction in the past. ALLERGIES: SHE HAS ALLERGIES LISTED TO ATORVASTATIN AND LISINOPRIL. FAMILY HISTORY: Includes heart disease. SOCIAL HISTORY: She is a [facility] resident. She has at least 3 daughters, 2 of whom I met in the Emergency Room today. She made it very clear that she does not want any form of resuscitation in the event of her demise. A no code blue order will be entered in the record. REVIEW OF SYSTEMS: The patient is on a BiPAP machine and has great difficulty speaking, reports only that she has had some chest pain and severely increased shortness of breath in the last couple of days. PHYSICAL EXAMINATION: GENERAL: The patient is an overweight, elderly, female on BiPAP at 40% with a respiratory rate of 18. [address] [address] HISTORY AND PHYSICAL Name: WILFRED LÓPEZ Room #: 217-P [facility] IN [facility].#: [id number] Admission: 05/30/18 Attend Phys: Ayo Hook MD Discharge: Date of : 37 Report #: [id number] VITAL SIGNS: Her blood pressure on my arrival was 170/90 and her pulse was 63. Her oxygen saturation on 40% was between 90% and 96% during my visit. HEENT: The extraocular muscles are intact. The oropharynx could not be well examined because of the facemask but appeared moist. NECK: Shows a surgical scar on the right side, which the patient could not remember, was the cause. She does have palpable pulses on both carotids. No palpable masses in the neck, otherwise. CHEST: She has a midline thoracotomy scar on her chest with regular cardiac rhythm and distant heart tones. The breath sounds are diminished both on the right side and on the left side but more so on the right. No wheezes auscultated. ABDOMEN: Soft. Bowel sounds are present throughout. No visceromegaly or masses. EXTREMITIES: There is no edema, no cyanosis was noted and no clubbing. Peripheral pulses are weak in both legs, but palpable. Wrist pulses are strong bilaterally. NEUROLOGIC: The patient was able to move all 4 extremities independently on command without difficulty. Gait could not be assessed. Babinski's is negative bilaterally. Romberg's was not tested. Stocking sensory deficits bilaterally. MENTAL STATUS: She is alert. She is oriented to person and place but not time. No hallucinations or delusions and her limited conversation was appropriate and goal directed. LABORATORY DATA: First arterial blood gas on 2 liters per nasal cannula of oxygen revealed a pH of 7.256 and acidosis; pCO2 of 67.2, markedly elevated; pO2 of 70.3. The lactic acid was normal at 0.44. Repeat blood gas was done hour and a half later, which showed a slightly improved oxygenation with a pH at 7.253, pCO2 of 65.9 and a pO2 of 85.7 and otherwise unchanged. The lactic acid level was still normal at 0.55 and at that time, the patient was on 40% oxygen with 6 cm of PEEP on BiPAP. The EKG in the Emergency Room showed a normal sinus rhythm, rate of 63 beats per minute, a right bundle branch block and in comparison to the 01/12/2018 study, there was no significant change. The basic metabolic panel showed a sodium 142, potassium 5.0, chloride of 106, bicarbonate of 31, BUN of 35, creatinine 3.9. The anion gap was low at 5, the glucose 99, calcium 9.4 and the estimated GFR was 13. NT-proBNP was 2653. The CBC showed a white count that was not elevated at 7300 with a differential mechanically of 73.9% segs, 14.6% lymphs, 9.2% monocytes and 1.5% eosinophils, basophils were 0.8 and the absolute neutrophil count was 5400. The hemoglobin was slightly low at 10.5 with the hematocrit of 32.9, normal red cell indices and platelet count was slightly diminished at 120,000. Chest x-ray was performed in the Emergency Room and showed cardiomegaly with evidence of previous midline sternotomy and "bilateral fairly diffuse heterogeneous pulmonary opacities suggesting bilateral pneumonia versus asymmetric pulmonary edema, with a small right pleural effusion and right lower lung atelectasis. There is some atelectasis in the left lung base." [facility] [address] [address] HISTORY AND PHYSICAL Name: WILFRED LÓPEZ Room #: 217-P ADM IN M.R.#: [id number] Admission: 05/30/18 Attend Phys: Ayo Hook MD Discharge: Date of : 37 Report #: [id number] In reviewing previous records, today's creatinine of 3.9 was preceded by a creatinine of 3.0 on 01/18/2018 and 3.6 on 01/17/2018 and 4.3 on 01/16/2018. The lowest reading in the past year has been 2.5 in July and prior to that, it was 2.2 in 05/2016. Previous hemoglobin was 12.3 as compared to 10.5 today. Previous platelet count 158,000 and 147,000 and 184,000 in the last 3-4 readings. In my review of the chest x-ray, I have great difficulty visualizing the right hemidiaphragm, the last one is more easily seen. There are diffuse infiltrates bilaterally, but in particular, there is vascular congestion diffusely bilaterally. IMPRESSION AND PLAN: 1. Acute hypercapnic respiratory failure, possibly multifactorial - we will get a Pulmonary consult; however, I believe that the most significant portion of this finding is congestive heart failure. Since I cannot rule out pneumonia completely at this time, we will initiate aggressive antibiotic therapy. Aggressive pulmonary toilet. Careful cardiac monitoring. 2. Acute on chronic kidney disease, at least stage 4 - we will obtain a Nephrology consult as well. Her acid base picture is somewhat clouded with underlying respiratory acidosis and chronic kidney disease. She does not respond appropriately to diuretics. We may need to consider a short-term dialysis or ultrafiltration. I will defer to the process improvement consultant. 3. Type 2 diabetes. We will monitor and treat aggressively. 4. Hypertension - I believe that her elevated blood pressure today is partly due to her acute anxiety with this illness, but also is a better reflection of her volume status the presence of chronic kidney disease. 5. Obstructive sleep apnea. We will continue BiPAP for now and defer to Pulmonary with further management of this chronic problem. 6. Hyperlipidemia. We will defer this to outpatient care. 7. History of thrombocytopenia mentioned above. Suspect underlying liver problem for now. We will get an echocardiogram to assess cardiac function. The NT-proBNP is likely not going to be very helpful in the current clinical setting. I did discuss code status with the patient and her daughter present during my exam. In reviewing the patient's [facility] records, a no code blue status was previously agreed to by the patient and that appears to be her desire at present as well and I will enter that order into the computer. <ELECTRONICALLY SIGNED> By: Ayo Hook MD 05/30/18 2156 1113 1229 Ayo Hook MD /nt
[2018-05-31 00:28] LABS: URINE BILIRUBIN NEGATIVE (Negative); URINE BLOOD 1+ (Negative); URINE CLARITY CLEAR; URINE COLOR YELLOW; URINE GLUCOSE-RANDOM* NEGATIVE (Negative); URINE KETONES NEGATIVE (Negative); URINE LEUKOCYTES-REFLEX NEGATIVE (Negative); URINE NITRITE-REFLEX NEGATIVE (Negative); URINE PROTEIN (DIPSTICK) 1+ (Negative); URINE UROBILINOGEN 0.2 E.U./dl (0.2-1.0)
[2018-05-31 00:29] LABS: HYALINE CASTS 0-3 Few /LPF (None Seen); MUCUS 0-3 Light strn/LPF (None Seen); SQUAMOUS 0-3 Few /LPF (0-3); TRANSITIONAL EPITHEL CELL 0-3 Few /LPF (None Seen)
[2018-05-31 00:30] LABS: BACTERIA-REFLEX None Seen /HPF (None Seen); CRYSTALS None Seen /LPF (None Seen); URINE RBC 0-2 Rare /HPF (0-2); URINE WBC-REFLEX None Seen /HPF (0-5)
[2018-05-31 04:06] LABS: ALBUMIN 2.4 g/dL (3.4-5.0); CALCIUM 9.2 mg/dL (8.5-10.1); CREATININE 3.7 mg/dL (0.6-1.0); POTASSIUM 4.6 mmol/L (3.5-5.1); TOTAL BILIRUBIN 0.4 mg/dL (<0.1-1.0); TOTAL PROTEIN 7.1 g/dL (6.4-8.2)
[2018-05-31 04:16] LABS: HEMATOCRIT 29.4 % (37.0-47.0); HEMOGLOBIN 9.5 gm/dL (12.0-15.0); MCH 29.9 pg (26.0-34.0); MCHC 32.2 g/dL (28.0-37.0); MCV 92.9 fL (80.0-100.0); RBC 3.16 mil/uL (4.20-5.00); RDW 16.3 % (10.5-14.5); WBC 5.6 thou/uL (4.0-11.0)
[2018-05-31 04:40] VITALS: BP 150/73
--- NOTE | 2018-05-31 04:54 | NUR ---
ASSUMED PT CARE AT 1900. PT A/OX4, VITAL SIGNS STABLE, ASSESSMENT CHARTED. PT WAS ON BIPAP BUT REQUESTED TO BE TAKEN OFF SO THAT SHE COULD EAT SOME DINNER. PT WAS PUT ON 4L AND SEEMED COMFORTABLE. NO COMPLAINTS OF PAIN OR CHEST PAIN. PT WAS PUT BACK ON BIPAP AT HS. PT RESTED WELL THROUGH THE NIGHT. Q2-3H TURNS COMPLETED. PROGRESSING TOWARD PLAN OF CARE. WILL CONTINUE TO MONITOR.
[2018-05-31 08:06] LABS: BE(vivo) 2.8 mmol/L (-2 to +3); HCO3 31.1 mmol/L (22.0-26.0); PCO2 64.2 mmHg (35.0-45.0); PO2 53.2 mmHg (80.0-100.0); pH 7.303 (7.360-7.450); sO2 83.3 % (92.0-98.0)
[2018-05-31 08:27] VITALS: BP 148/47
--- NOTE | 2018-05-31 10:48 | NUR ---
Assess due to notification of pressure ulcer to coccyx which has been documented as healing. Admitted with CHF. Hx severe CKD, dm, COPD. BG controlled. On bipap and sleeping so did not disturb. Wts stable from past wts 200-213 lb. Renal progress notes indicate needs salt and fluid restriction, pt has orders for just carb controlled at this time. Discussed with nursing who will address once pt improves. Low nutrition risk at this time.
[2018-05-31 14:05] VITALS: BP 147/65
--- NOTE | 2018-05-31 14:29 | NUR ---
patient rec care, sp with dtr. patient resides at [facility]. She admits with resp failure. Patient utilizes wc at [facility] and uses oxygen /. Sp with [facility] plan return once stable, casemgt following.
--- NOTE | 2018-05-31 15:43 | NUR ---
ASSUMED CARE AT 14:41. WOUND CARE PROVIDED TO PATIENT WITH DOCUMENTATION PER PROTOCOL. PATIENT RESTING IN BED ON 4L NASAL CANNULA. CONTINUOUS PULSE OX IN PLACE, O2 SATS REMAIN >93%. SPENCER PATENT & SECURED IN PLACE. FALL PRECAUTIONS IN PLACE, CALLS FOR ASSIST APPROPRIATELY.
[2018-05-31 15:48] VITALS: BP 125/56
--- NOTE | 2018-05-31 19:18 | HC ---
[facility] [place] [address] CONSULTATION Name: WILFRED LÓPEZ Room #: 217-P ADM IN M.R.#: [id number] Admission: 05/30/18 Attend Phys: Ayo Hook MD Discharge: Date of : 37 Report #: [id number] THIS REPORT FOR: //name// CC: FAM unknown Ayo Hook DATE OF SERVICE: 05/30/2018 REFERRAL PHYSICIAN: Dr. Ayo Hook. REASON FOR REFERRAL: Acute respiratory distress. HISTORY OF PRESENT ILLNESS: The patient is an 82-year-old female who was brought to the Emergency Room with progressive dyspnea. A pulmonary consultation was requested. The patient is known to this physician. She has had prior history of pulmonary hypertension with a pulmonary artery pressure around 70 mmHg, questionable pulmonary embolus, status post IVC filter placement, chronic hypercapnic respiratory failure, presumed sleep related breathing disorder, chronic kidney disease, chronic diastolic heart failure, diabetes mellitus type 2 with diabetic neuropathy, coronary artery disease, progressive debility and weakness along with obesity. She also has a history of depression, coronary artery disease with past myocardial infarction. For progressive generalized weakness, she was placed in a fpc. She has a history of neuropathy. PAST SURGICAL HISTORY: As mentioned above including stent placement, hysterectomy, prior back surgery, appendectomy, cataract surgery on the right eye. ALLERGIES: LIPITOR, WHICH CAUSES MYALGIAS; LISINOPRIL, REACTIONS UNSPECIFIED. MEDICATIONS: Medication list are reviewed in the MAR. This includes aspirin, Crestor, oxybutynin, Demadex, insulin supplements, Symbicort, Tylenol, isosorbide, Coreg, Xalatan eye drop, multivitamins, Tylenol, Zoloft, Pepcid. FAMILY HISTORY: Noncontributory. SOCIAL HISTORY: The patient has never smoked. Denies any alcohol use. She resides at [facility]. REVIEW OF SYSTEMS: As mentioned above, otherwise limited as the patient is currently on BiPAP. PHYSICAL EXAMINATION: GENERAL: She is somewhat somnolent, tolerating BiPAP. [address] [address] CONSULTATION Name: WILFRED LÓPEZ Room #: [address] [place] [address] IN M.R.#: [id number] Admission: 05/30/18 Attend Phys: Ayo Hook MD Discharge: Date of : 37 Report #: [id number] VITAL SIGNS: Temperature is 97.6 degrees Fahrenheit, pulse is 65, respiratory rate is 20, blood pressure 167/64 mmHg, saturation is 90%. HEENT: Normocephalic, atraumatic. NECK: Supple, no lymphadenopathy or thyromegaly. CHEST: Breath sounds are good bilaterally without any rales or wheezes. CARDIOVASCULAR: Normal S1, S2. No murmurs or gallop. There is no JVD. There is no carotid bruit. Pulses are 2+/4+ bilaterally. ABDOMEN: Soft, nontender, no organomegaly or masses felt. GENITOURINARY: Deferred. RECTAL: Deferred. EXTREMITIES: 1-2+ bilateral pretibial edema. NEUROLOGIC: Mildly somnolent. LABORATORY DATA: Portable chest x-ray shows right lower lobe infiltrate, right upper lobe infiltrates, increasing pulmonary vascular markings suggestive of heart failure. Small lung volumes noted along with cardiomegaly. BNP is 2600. Echocardiogram showed normal LV function, ejection fraction 60%, mild diastolic dysfunction, moderate aortic regurgitation, moderate mitral regurgitation, pulmonary artery pressure around 70 mmHg. Electrolytes: Sodium 142, potassium 5.0, chloride 106, CO2 is 31, BUN 35, creatinine 3.9. WBC 7300, hemoglobin 10.5, platelets mildly reduced at 120,000. No evidence of bandemia. Arterial blood gas revealed pH 7.25, pCO2 of 65, pO2 of 85 on FiO2 40%. IMPRESSION: 1. [id number] hypercapnic hypoxic respiratory failure in this 82-year-old female. Chest x-rays suggest congestive heart failure, possible pneumonia. 2. Chronic hypercapnic respiratory failure, probably related to hypoventilation syndrome, obesity hypoventilation, etc. 3. Pulmonary hypertension, pulmonary artery pressure of 70 mmHg due to above. 4. Chronic kidney disease. 5. Acute on chronic diastolic heart failure. 6. Diabetes mellitus type 2 with diabetic neuropathy, coronary artery disease with history of coronary artery bypass surgery. 7. Generalized debility and weakness. 8. Exogenous obesity. 9. Anemia, likely due to chronic disease. 10. Remote history of pulmonary embolus, status post IVC filter placement, 05/2016. 11. Progressive debility and weakness, difficult problem. 12. Medical directive, according to the family, she is a do not resuscitate. RECOMMENDATION: Agree with noninvasive positive pressure ventilation, agree with gentle diuresis. We will recommend broad-spectrum antibiotics to cover for nosocomial infections. DVT and GI prophylaxis as indicated. [facility] [address] [place] [address] CONSULTATION Name: LÓPEZWILFRED Room #: 217-P ADM IN M.R.#: [id number] Admission: 05/30/18 Attend Phys: Ayo Hook MD Discharge: Date of : 37 Report #: [id number] Thank you for this consultation. <ELECTRONICALLY SIGNED> By: Garfield Gutierrez MD 05/31/18 1918 [id number] 0154 Garfield Gutierrez MD /nt
[2018-05-31 20:01] VITALS: BP 142/57
[2018-06-01 00:08] VITALS: BP 133/42
[2018-06-01 04:19] LABS: ALBUMIN 2.4 g/dL (3.4-5.0); CALCIUM 9.2 mg/dL (8.5-10.1); PHOSPHORUS 4.4 mg/dL (2.5-4.9); POTASSIUM 4.3 mmol/L (3.5-5.1)
[2018-06-01 04:44] VITALS: BP 125/43
--- NOTE | 2018-06-01 05:00 | NUR ---
ASSUMED PT CARE AT 1900. PT A/OX4, VITAL SIGNS STABLE, ASSESSMENT CHARTED. NO COMPLAINTS OF CHEST PAIN. PT COMPLAINED OF PAIN ON BOTTOM. PAIN ADEQAUTELY MANAGED WITH PAIN MEDICATION. PT RESTED WELL THROUGH THE NIGHT. Q2-3HR TURNS COMPLETED. PROGRESSING TOWARD PLAN OF CARE. WILL CONTINUE TO MONITOR.
[2018-06-01 07:20] VITALS: BP 114/49
--- NOTE | 2018-06-01 10:10 | NUR ---
PT. RESIDES AT [facility] FAXED CLINICAL UPDATE TO FACILITY AND SPOKE WITH WINNIE IN ADM. AND SHE RECEIVED UPDATE. DCP TO FOLLOW.
[2018-06-01 11:40] VITALS: BP 120/64
[2018-06-01 15:02] VITALS: BP 91/51
--- NOTE | 2018-06-01 16:01 | NUR ---
at request of patient and dtr they wanted to sp with casemgt regarding hospice services. Discussed hospice services at [facility] and updated on agencies they work with currently in building, also gave other brochures. Encouraged patient to discuss with Dr Hook. Updated Dr Hook.
[2018-06-01 20:19] VITALS: BP 101/50
--- NOTE | 2018-06-01 23:33 | EKG ---
[address] [place] [address] ELECTROCARDIOGRAM REPORT Name: WILFRED LÓPEZ Room #: 217- ADM IN M.R.#: [id number] Admission: 05/30/18 Attend Phys: Ayo Hook MD Discharge: Date of : 37 Report #: [id number] THIS REPORT FOR: //name// [facility] Test Date: 2018-06-01 Test Time: 14:57:54 Pat Name: WILFRED LÓPEZ Department: Room: 217 P Gender: F Medical Geneticist: EMILIA : 1935 Requested By: Erica Johnson Order Number: [id number] MD: Joseph Chin Measurements Intervals [place] Rate: 70 P: 49 NM: 170 QRS: -43 QRSD: 148 T: 6 QT: 453 QTc: 489 Interpretive Statements Sinus rhythm RBBB and LAFB Compared to ECG 05/30/2018 07:52:30 Left anterior fascicular block now present Electronically Signed On 06-01-2018 23:33:40 OPHTHALMOLOGIST RETINA SPECIALIST by Joseph Chin [email or web address] <ELECTRONICALLY SIGNED> By: Joseph Chin MD 06/01/18 2333 1457 145 Joseph Chin MD /[facility]
[2018-06-02 04:22] VITALS: BP 101/59
[2018-06-02 05:24] LABS: ALBUMIN 2.4 g/dL (3.4-5.0); CALCIUM 9.1 mg/dL (8.5-10.1); CREATININE 4.5 mg/dL (0.6-1.0); PHOSPHORUS 5.1 mg/dL (2.5-4.9); POTASSIUM 4.3 mmol/L (3.5-5.1)
--- NOTE | 2018-06-02 06:45 | NUR ---
ASSUMED CARE OF PT AT SHIFT CHANGE. ASSESSMENTS CHARTED. MEDS GIVEN PER JUL. PT AOX4, C/O ABDOMINAL PAIN, MANAGED WITH PO PAIN MEDS. DENIES CHEST PAIN. O2 SATS REMAINED WNL ON 2L O2. PT WORE BIPAP THROUGHOUT NIGHT, TOLERATED WELL. NO S/SX OF CARDIAC OR RESP DISTRESS NOTED. RESTED WELL THROUGHOUT NIGHT. WILL CONTINUE TO MONITOR AND FOLLOW POC.
[2018-06-02 08:11] VITALS: BP 127/58
[2018-06-02 12:28] VITALS: BP 120/55
--- NOTE | 2018-06-02 13:01 | NUR ---
CM SPOKE WITH PHYSICIAN THIS DAY AND HE INDICATED THAT PT AMD FAMILY WERE INTERESTED IN ELECTING HOSPICE SERVICES. HE INDICATED THAT THEY WERE INTERESTED IN EITHER THE HOUSE OR SERVICES OVER AT [facility]. CM CONTACTED HOSPICE AND FAXED REFERRAL FOR REVIEW. PHYSICAIN INDICATED THAT PT IS MEDICALLY STABLE TO DISCHARGE TO EITHER DESTINATION THIS DAY. CM AWAITING DETERMINATION. WILL ASSIST INDICATED.
[2018-06-02] MEDS ORDERED: MSL20MG/ML PO (13:10)
[2018-06-02] MEDS ORDERED: LORAZEPAM I2 MG/1 M2 PO (13:11)
[2018-06-02] MEDS ORDERED: GLUTOSE GEL 1515 G1 PO (13:11)
[2018-06-02] MEDS ORDERED: GLUCAGEN1 MG/1 ML IM (13:12)
[2018-06-02 15:35] VITALS: BP 109/58
--- NOTE | 2018-06-02 16:07 | NUR ---
HOSPICE ASSESSING FOR SERVIES. THEY INDIATED PT QUALIFIES FOR HOSPICE SERVICE AT THE FACILITY ISN'T APPROPRIATE FOR ADMISSION TO HOSPICE HOUSE. HOSPICE ISN'T ABLE DO AN ADMISSION TONIGHT AND WOULD BE ABLE TO TOMORROW. CM NOTIFIED [facility] OR ANTIPATED RETUR TO FACILITY WITH HOSPICE TOMORROW. [facility] FORM COMPLETED AND PLACED ON THE CHART. IT WILL NEED TO BE FAXED AND CALLED TO SCHEDULED. REPORT TO BE CALLED TO . FAX ORDERES TO . [facility] WITH TRANSPORT TIME ONCE ARRRANGED AT . CHART COPIED.
--- NOTE | 2018-06-02 17:16 | NUR ---
ASSUMED CARE OF PT AT 0700. PT A&OX4, HAD FLAT EFFECT AND WAS WITHDRAWN. PT HAD BUTTOCK PAIN IN AFTERNOON THAT WAS CONTROLLED WITH MED. PT DENIED SHORTNESS OF BREATH. FAMILY WAS VERY CONCERNED REGARDING PT'S DECISION FOR HOSPICE. KAYA, PT'S DAUGHTER, STATED THAT FAMILY WAS NOT INVOLVED WITH HER CARES AND THEREFORE NOT KNOWLEDGEABLE OF HER MULTIPLE COMORBIDITIES. FAMILY GIVEN EDUCATION BY NURSE, DOCTOR, CONSULTANT TEACHER AND HOSPICE NURSE. DR. CAN WROTE ORDERS FOR PT TO BE DISCHARGED TODAY WITH HOSPICE, BUT LEIF, CONSULTANT TEACHER, TOLD ME THAT HOSPICE UNABLE TO ASSUME CARE UNTIL TOMORROW. DR. CAN NOTIFIED. HOSPICE NURSE REQUESTED THAT ROXINOL SCHEDULE BE CHANGED TO: 10 MG Q3HR SCHEDULED WITH Q1HR PRN AND LORAZEPAM CHANGED TO Q1HR PRN. REQUESTED THAT LORAZEPAM ALWAYS BE GIVEN WHEN MORPHINE GIVEN. DR. CAN NOTIFIED OF THIS REQUEST AND HE DID NOT CHANGE HIS CURRENT MED ORDERS. HE REQUESTED WE CALL HIM IF PT'S PAIN/AIR HUNGER AND ANXIETY IS NOT CONTROLLED WITH CURRENT MED ORDERS. CURRENT PLAN IS FOR PT TO DISCHARGE [facility] WITH HOSPICE 06/03/18. WILL CONT WITH POC.
[2018-06-02 20:07] VITALS: BP 105/67
--- NOTE | 2018-06-03 04:13 | NUR ---
ASSUMED PT CARE AT 1900. VSS. ASSESSMENTS AND MEDS GIVEN ARE CHARTED. PT GOT UP WITH 1 ASSIST TO BEDSIDE COMMODE TO ATTEMPT TO HAVE A BM, BUT NO BM. PT TOLERATED BIPAP WELL OVER NIGHT, SHE COMPLAINED OF PAIN IN HER BACK, PO MORPHINE GIVEN. SHE SLEPT WELL OVERNIGHT. PT TO BE D/C TODAY TO [facility] WITH HOSPICE.
[2018-06-03 04:33] VITALS: BP 103/49
[2018-06-03 08:00] VITALS: BP 109/52
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
[2018-06-03 12:00] VITALS: BP 110/55
--- NOTE | 2018-06-03 13:39 | NUR ---
PT TRANSTERRED TO [facility]. REPORT GIVEN TO LUZ. ORDERS FAXED AND ENVELOPE SENT WITH PT. [facility] FAXED AND CALLED FOR PICKUP AT 1. [facility] CALLED AND DISCHARGE ORDERS FAXED TO HER AT [phone]
--- NOTE | 2018-06-14 12:15 | HC ---
[facility] [place] [address] CONSULTATION Name: WILFRED LÓPEZ Room #: 217-P [facility] IN M.R.#: [id number] Admission: 05/30/18 Attend Phys: Ayo Hook MD Discharge: 06/03/18 Date of : 39 Report #: [id number] THIS REPORT FOR: //name// CC: FAM unknown Ayo Hook DATE OF SERVICE: 05/30/2018 NEPHROLOGY CONSULTATION: ATTENDING PHYSICIAN: Dr. Hook. REASON FOR CONSULTATION: Chronic kidney disease. HISTORY OF PRESENT ILLNESS: This 82-year-old patient is well known to our service, has been followed in our office and also here in the hospital for some time. She has known chronic kidney disease, baseline creatinine we feel is about 3 representing a fairly low EGFR at her age of 82. The patient has known COPD, on chronic oxygen as well as obstructive sleep apnea, on CPAP. Despite the chronic oxygen in the extended care facility, she became progressively short winded, was brought to the Emergency Room and found to have respiratory acidosis, hypoxemia, requiring BiPAP and a chest x-ray suggestive of fluid overload versus bilateral pneumonia. PAST MEDICAL HISTORY: She has history of diabetes and hypertension, previous coronary bypass as well as cardiac stents, peripheral neuropathy, proteinuric diabetic renal disease as well as previous appendectomy, hysterectomy and also thrombocytopenia. She was hospitalized here last summer with probable pneumonia and treated successfully and a baseline creatinine of about 3-4 was established. SOCIAL HISTORY: She lives at the [facility]. Very clearly wants a no code blue and is also clear and that she does not want dialysis under any circumstances and I did discuss this with her at some length. REVIEW OF SYSTEMS: Really cannot be taken. She is on the BiPAP machine and difficulty with communication to some degree aside from yes/no type discussions. I do believe she does understand though what I am saying and she is in that way quite lucid. PHYSICAL EXAMINATION: GENERAL: This is an elderly woman with BiPAP on, reasonably comfortable at the current time. SKIN: Unremarkable with relatively normal turgor. SKELETAL: Shows her to be well developed, well nourished. HEENT: Extraocular movements appear to be full. BiPAP mask is in place. [facility] [address] [place] [address] CONSULTATION Name: WILFRED LÓPEZ Room #: 217-P [facility] IN M.R.#: [id number] Admission: 05/30/18 Attend Phys: Ayo Hook MD Discharge: 06/03/18 Date of : 39 Report #: [id number] NECK: Supple. There is a right neck scar noted. CHEST: Somewhat coarse. HEART: Somewhat distant. ABDOMEN: Soft and nontender. EXTREMITIES: Show absolutely no edema. Feet are warm. NEUROLOGIC: Shows her to be able to move all extremities at request. LABORATORY DATA: Urinalysis is pending. As mentioned, she does have proteinuria from previous encounters. Hemoglobin 10.5, white count 7.3, platelets 120. No manual differential was performed. Sodium 142, potassium 5, chloride 106, bicarbonate 31, BUN 35, creatinine 3.9. ASSESSMENT AND PLAN: 1. Acute respiratory insufficiency. She has high pCO2. She is known to have very severe pulmonary hypertension, but despite that has no peripheral edema suggestive of the fact that if she is at all fluid overloaded, it is not much and that this certainly could be more infectious then hemodynamic in terms of the acute respiratory decompensation. She also has received some IV Lasix with good urinary output, but has been treated with Zosyn up to this point and ceftriaxone and levofloxacin. 2. Chronic kidney disease. She has chronic kidney disease rather advanced and does not want dialysis. 3. Severe chronic obstructive pulmonary disease. 4. Ischemic cardiac disease with previous stents and bypass. 5. Pulmonary hypertension. 6. History of pulmonary embolus with previous IVC filter placement. 7. Chronic debility [facility] resident. <ELECTRONICALLY SIGNED> By: Tom Lowry MD 06/14/18 1215 1755 [id number] Tom Lowry MD /nt
--- NOTE | 2018-06-15 15:14 | 2DMMODE ---
[facility] [address] [place] [address] 2 D/M-MODE ECHOCARDIOGRAM Name: WILFRED LÓPEZ Room #: 217-P [facility] IN M.R.#: [id number] Admission: 05/30/18 Attend Phys: Ayo Hook MD Discharge: 06/03/18 Date of : 39 Date of Service: 05/30/18 1625 Report #: [id number] THIS REPORT FOR: //name// APPROVED REPORT Study performed: 05/30/2018 14:21:51 EXAM: Comprehensive 2D, Doppler, and color-flow Echocardiogram Patient Location: Bedside Room #: [facility] Status: routine BSA: 2.00 HR: 66 bpm BP: 167/64 mmHg Rhythm: NSR Other Information Study Quality: Adequate/Limited mobility, patient on BiPAP Indications CHF, short of breath. Hx: AK, CABG, Stent, COPD, DM, HLP, PE. 2D Dimensions IVSd: 12.00 (7-11mm) LVOT Diam: 20.92 (18-24mm) LVDd: 48.00 mm PWd: 12.00 (7-11mm) Ascending Ao: 35.77 (22-36mm) LVDs: 32.87 (25-40mm) Aortic Root: 33.00 mm Volumes Left Atrial Volume (Systole) Single Plane 4CH: 56.42 mL Single Plane 2CH: 71.08 mL LA ESV Index: 35.00 mL/m2 Aortic Valve AoV Peak Nehemias.: 1.52 m/s AO Peak Gr.: 9.22 mmHg LVOT Max P.44 mmHg LVOT Max V: 0.93 m/s LAXMI Vmax: 2.10 cm2 Mitral Valve E/A Ratio: 0.7 MV Decel. Time: 179.42 ms MV E Max Nehemias.: 0.83 m/s MV A Nehemias.: 1.15 m/s MV PHT: 52.03 ms [facility] [place] [address] 2 D/M-MODE ECHOCARDIOGRAM Name: WILFRED LÓPEZ Room #: 217-P [facility] IN .R.#: [id number] Admission: 05/30/18 Attend Phys: Ayo Hook MD Discharge: 06/03/18 Date of : 39 Date of Service: 05/30/18 1625 Report #: [id number] IVRT: 103.81 ms Pulmonary Valve PV Peak Nehemias.: 0.90 m/s PV Peak Gr.: 3.21 mmHg Tricuspid Valve TR Peak Nehemias.: 4.03 m/s RAP Estimate: 5.00 mmHg TR Peak Gr.: 64.86 mmHg PA Pressure: 70.00 mmHg Left Ventricle The left ventricle is normal size. Mild concentric left ventricular hypertrophy. Left ventricular systolic function is normal. Small area of hypokinesis involving base of inferior wall and inferoseptum. LVEF is 60%. Mild diastolic dysfunction is present (impaired relaxation pattern). Right Ventricle Right ventricle is not well visualized. Atria Left atrium is mildly dilated. The right atrium size is normal. Aortic Valve The aortic valve is mildly sclerotic. Mild to moderate aortic regurgitation. There is no aortic valvular stenosis. Mitral Valve The mitral valve is normal in structure. Mild to moderate mitral regurgitation. Tricuspid Valve The tricuspid valve is normal in structure. Moderate tricuspid regurgitation. Severe pulmonary hypertension with an estimated pulmonary artery pressure of 70mmHg. Pulmonic Valve Pulmonic valve is not well visualized. Mild pulmonic regurgitation. Great Vessels The aortic root is normal in size. The ascending aorta is normal in size. IVC is normal in size and collapses >50% with inspiration. [address] [address] 2 D/M-MODE ECHOCARDIOGRAM Name: WILFRED LÓPEZ Room #: 217-P [facility] IN [facility].#: [id number] Admission: 05/30/18 Attend Phys: Ayo Hook MD Discharge: 06/03/18 Date of : 39 Date of Service: 05/30/18 1625 Report #: [id number] Pericardium There is no pericardial effusion. <Conclusion> Left ventricular systolic function is normal. Small area of hypokinesis involving base of inferior wall and inferoseptum. LVEF is 60%. Mild diastolic dysfunction Left atrium is mildly dilated. The aortic valve is mildly sclerotic. Mild to moderate aortic regurgitation, no stenosis. The mitral valve is normal in structure. Mild to moderate mitral regurgitation. Moderate tricuspid regurgitation. Pulmonary artery pressure of 70mmHg There is no pericardial effusion. <ELECTRONICALLY SIGNED> By: Miguel Ángel Rooney MD, [facility] 05/30/18 1625 1625 1625 Miguel Ángel Rooney MD, FAC /INF
== END 2018-06-03 13:06 | disposition hospice, inpatient (51) | DRG 177 ==
LOC: ER 07:37 → 2N 09:46 → EROBS 09:46 → 2N 11:10
PROVIDERS: Emergency Medicine; Hospitalist; ADMIT Internal Medicine
PROC: 5A09357 Assistance with Respiratory Ventilation, Less than 24 Consecutive Hours, Continuous Positive Airway Pressure (ICD-10-PCS; principal; 2018-05-30)
PROC: 5A09357 Assistance with Respiratory Ventilation, Less than 24 Consecutive Hours, Continuous Positive Airway Pressure (ICD-10-PCS; 2018-05-31)
PROC: 5A09357 Assistance with Respiratory Ventilation, Less than 24 Consecutive Hours, Continuous Positive Airway Pressure (ICD-10-PCS; 2018-06-01)
PROC: 5A09357 Assistance with Respiratory Ventilation, Less than 24 Consecutive Hours, Continuous Positive Airway Pressure (ICD-10-PCS; 2018-06-02)
PROC: 5A09357 Assistance with Respiratory Ventilation, Less than 24 Consecutive Hours, Continuous Positive Airway Pressure (ICD-10-PCS; 2018-06-03)
DX: J69.0 Pneumonitis due to inhalation of food and vomit (principal); J96.22 Acute and chronic respiratory failure with hypercapnia; N18.6 End stage renal disease; J96.21 Acute and chronic respiratory failure with hypoxia; I50.33 Acute on chronic diastolic (congestive) heart failure; I13.2 Hypertensive heart and chronic kidney disease with heart failure and with stage 5 chronic kidney disease, or end stage renal disease; N17.9 Acute kidney failure, unspecified; E66.2 Morbid (severe) obesity with alveolar hypoventilation; J44.0 Chronic obstructive pulmonary disease with (acute) lower respiratory infection; N18.4 Chronic kidney disease, stage 4 (severe); E78.5 Hyperlipidemia, unspecified; F32.9 Major depressive disorder, single episode, unspecified; E11.42 Type 2 diabetes mellitus with diabetic polyneuropathy; K21.9 Gastro-esophageal reflux disease without esophagitis; E11.22 Type 2 diabetes mellitus with diabetic chronic kidney disease; I27.20 Pulmonary hypertension, unspecified; I25.9 Chronic ischemic heart disease, unspecified; I25.10 Atherosclerotic heart disease of native coronary artery without angina pectoris; E87.70 Fluid overload, unspecified; D63.8 Anemia in other chronic diseases classified elsewhere; D47.3 Essential (hemorrhagic) thrombocythemia; Z66 Do not resuscitate; Z95.1 Presence of aortocoronary bypass graft; Z95.5 Presence of coronary angioplasty implant and graft; I25.2 Old myocardial infarction; Z98.41 Cataract extraction status, right eye; Z90.49 Acquired absence of other specified parts of digestive tract; Z86.711 Personal history of pulmonary embolism; Z88.8 Allergy status to other drugs, medicaments and biological substances; Z90.710 Acquired absence of both cervix and uterus; Z95.828 Presence of other vascular implants and grafts; Z68.36 Body mass index [BMI] 36.0-36.9, adult
CPT/HCPCS: 10081; 10194